=== PATIENT | male | born 1980 | race African-American/Black ===

== ENCOUNTER 2018-05-04 15:51 | Inpatient (IN) | payer OTHER ==
--- NOTE | 2018-05-04 16:00 | PDOC ---
Rapid Medical Evaluation Chief Complaint: Irregular Heart Beat Time Seen by Provider: 05/04/18 15:54 Medical Evaluation: Allergies Allergy/AdvReac Type Severity Reaction Status Date / Time No Known Allergies Allergy Verified 12/01/11 18:14 05/04/18 15:55 I have performed a brief in-person evaluation of this patient. The patient presents with a chief complaint of: palpitations Pertinent physical exam findings: Variable regular HR. No m/r/g. Lungs CTAB. I have ordered the following: urine, labs, CXR, ekg The patient will proceed to the ED for further evaluation. Discharge Disposition - Diagnosis Tachycardia - Referrals - Patient Instructions - Post Discharge Activity
[2018-05-04 16:27] LABS: EOS % 4.1 % (0-4.5); HEMATOCRIT 45.2 % (35.4-49); HEMOGLOBIN 14.9 GM/dL (11.7-16.9); LYMPH % 54.2 % (8-40); MEAN CELL VOLUME 93.9 fl (80-96); MEAN PLT VOLUME 9.9 fl (7.5-11.1); MONO % 9.5 % (3.8-10.2); NEUT % 31.2 % (42.8-82.8); PLATELET COUNT 170 K/MM3 (134-434); RBC 4.81 M/mm3 (4.00-5.60); RDW 12.9 % (11.9-15.9); WHITE BLOOD COUNT 4.3 K/mm3 (4.0-10.0)
--- NOTE | 2018-05-04 16:43 | PDOC ---
History of Present Illness - History of Present Illness Initial Comments: Anam Duenas is a 37yo otherwise healthy man who presents from his PMD's (Dr Reagan) office for new onset irregular heartbeat. He reports that he has noticed his heart was racing over the past few nights. He states that he can feel that his heart is not beating normally, but he is otherwise asymptomatic. He has a FitBit and notes that his HR has gone up to the 140's while sitting. Per the fitbit, his average heart rate is in the mid 60's (data reviewed in the ED). Mr Duenas denies any symptoms associated with the racing heart. He denies lightheadedness, vertigo, SOB/CLAY, chest pain, diaphoresis, nausea/vomiting or any other associated symptoms. He states that he does drinks one cup of coffee per day and does not drink caffeine otherwise. He takes no medications nor supplements at home. He has no personal cardiac history, though his father had several episodes of a-fib a few years ago and required cardioversion. <Irma Mckeon - Last Filed: 05/04/18 19:32> <Alba Pike - Last Filed: 05/10/18 05:36> - General Chief Complaint: Irregular Heart Beat Stated Complaint: PCP SENT/TACHYCARDIA Time Seen by Provider: 05/04/18 15:54 Past History - Suicide/Smoking/Psychosocial Hx Smoking Status: No Smoking History: Never smoked Have you smoked in the past 12 months: No Number of Cigarettes Smoked Daily: 0 Information on smoking cessation initiated: No Hx Alcohol Use: No Drug/Substance Use Hx: No <Irma Mckeon - Last Filed: 05/04/18 19:32> <Alba Pike - Last Filed: 05/10/18 05:36> - Past Medical History Allergies/Adverse Reactions: Allergies Allergy/AdvReac Type Severity Reaction Status Date / Time No Known Allergies Allergy Verified 12/01/11 18:14 Home Medications: Ambulatory Orders Apixaban [Eliquis -] 5 mg PO BID #60 tablet 05/06/18 Metoprolol Succinate 25 mg PO DAILY #30 tab.er.24h 05/06/18 Review of Systems - Review of Systems Comments:: General: No fevers, no chills, no weight or appetite change, no malaise HEENT: No changes in vision, no changes in hearing, no congestion, no sore throat CV: No chest pain, no LE edema. See HPI Pulm: No SOB, no cough, no wheezing GI: No nausea or vomiting, no change in bowel habits, no melena : No frequency, no urgency, no dysuria Musc: No back pain, no joint swelling, no recent injury Skin: No rash, no lesions, no erythema Endo: No excessive thirst, no heat/cold intolerance Heme: No unusual bruising or bleeding, no swollen glands Neuro: No syncope, no numbness/tingling, no focal weakness Vasc: No claudication Psych: No recent change in mood, no SI or HI <LindaIrma - Last Filed: 05/04/18 19:32> *Physical Exam - Vital Signs Last Vital Signs Temp Pulse Resp BP Pulse Ox 98.6 F 106 H 18 125/74 100 05/04/18 15:54 05/04/18 15:54 05/04/18 15:54 05/04/18 15:54 05/04/18 15:54 - Physical Exam Comments: General: Comfortable, no acute distress HEENT: PERRL, EOMI, MMM, voice normal, normal neck ROM, no LAD Cards: Irregular rhythm Pulm: Comfortable on room air, clear to auscultation bilaterally Abd: Soft, nontender, nondistended Ext: Atraumatic. No LE edema. ROM intact. Strength 5/5 and equal bilaterally Vasc: Extremities WWP. Palpable radial and pedal pulses bilaterally Skin: Normal color, no rashes or lesions Neuro: A&Ox3, CN grossly intact, normal speech, motor/sensory grossly intact and symmetric Psych: Mood appropriate to situation <LindaIrma - Last Filed: 05/04/18 19:32> - Vital Signs Last Vital Signs Temp Pulse Resp BP Pulse Ox 97.4 F L 63 20 96/55 L 99 05/06/18 14:30 05/06/18 14:30 05/06/18 14:30 05/06/18 14:30 05/06/18 13:53 <Alba Pike - Last Filed: 05/10/18 05:36> ED Treatment Course - LABORATORY CBC & Chemistry Diagram: 05/04/18 16:00 05/04/18 15:29 - ADDITIONAL ORDERS Additional order review: 05/04/18 16:00 RBC 4.81 MCV 93.9 MCHC 33.0 RDW 12.9 MPV 9.9 Neutrophils % 31.2 L Lymphocytes % 54.2 H Monocytes % 9.5 Eosinophils % 4.1 Basophils % 1.0 <Irma Mckeon - Last Filed: 05/04/18 19:32> - LABORATORY CBC & Chemistry Diagram: 05/05/18 11:15 05/05/18 05:30 - ADDITIONAL ORDERS Additional order review: 05/04/18 16:00 RBC 4.81 MCV 93.9 MCHC 33.0 RDW 12.9 MPV 9.9 Neutrophils % 31.2 L Lymphocytes % 54.2 H Monocytes % 9.5 Eosinophils % 4.1 Basophils % 1.0 - Medications Given in the ED: ED Medications Discontinued Medications Generic Name Dose Route Start Last Admin Trade Name Freq PRN Reason Stop Dose Admin Acetaminophen 650 mg 05/05/18 21:24 05/05/18 21:40 Tylenol - PO 05/05/18 21:25 650 mg ONCE ONE Administration Apixaban 5 mg 05/06/18 09:30 05/06/18 09:49 Eliquis - PO 05/06/18 09:31 5 mg ONCE ONE Administration Aspirin 325 mg 05/04/18 19:15 05/06/18 09:49 Ecotrin - PO 325 mg DAILY DARWIN Administration Heparin Sodium (Porcine) 5,000 unit 05/04/18 22:00 05/06/18 09:48 Heparin - SQ 5,000 unit BID DARWIN Administration Metoprolol Succinate 25 mg 05/04/18 19:15 05/05/18 09:38 Toprol Xl - PO 25 mg DAILY DARWIN Administration Metoprolol Succinate 25 mg 05/05/18 16:50 05/05/18 16:30 Toprol Xl - PO 05/05/18 16:51 25 mg ONCE ONE Administration Metoprolol Succinate 50 mg 05/05/18 22:00 05/06/18 09:49 Toprol Xl - PO 50 mg BID DARWIN Administration Metoprolol Tartrate 5 mg 05/05/18 14:47 05/05/18 14:52 Lopressor Injection - IVPUSH 05/05/18 14:48 5 mg ONCE ONE Administration Metoprolol Tartrate 5 mg 05/05/18 17:00 05/05/18 16:10 Lopressor Injection - IVPUSH 05/05/18 18:01 5 mg Q1H DARWIN Administration <Alba Pike - Last Filed: 05/10/18 05:36> Medical Decision Making - Medical Decision Making 05/04/18 16:45 Anam Duenas is an otherwise healthy 37yo man who presents with asymptomatic new onset a-flutter. - Could be due to thyroid abnormalities, MIRA, or underlying heart disease. Could also be due to undisclosed caffeine or substance use - PMD Dr Reagan requests consult with Dr Hall in cardiology, page sent - CBC, CMP, troponin, mag, PT/INR, T4, TSH, CXR ordered in triage - pending - EKG reviewed. a-flutter, irregular rhythm 05/04/18 16:48 - Spoke to Dr Ogden (cardiology). Recommending admission to telemetry, will continue to follow. No need for anticoagulation at this time as Mr Duenas is otherwise young and healthy - Spoke to Dr Reagan. Agrees with decision to admit to tele - Discussed admission with Mr Duenas. He agrees and understands with this plan. - CBC returned, unremarkable. Other labs and results pending. 05/04/18 19:32 - Chemistry unremarkable - Trop negative Patient endorsed to Dr Shaikh for any additional medical care prior to transfer upstairs. Discussed with Dr Pike. Irma Mckeon PGY1 <Irma Mckeon - Last Filed: 05/04/18 19:32> *DC/Admit/Observation/Transfer <Irma Mckeon - Last Filed: 05/04/18 19:32> - Discharge Dispostion Decision to Admit order: Yes <Alba Pike - Last Filed: 05/10/18 05:36> Diagnosis at time of Disposition: Tachycardia, Atrial flutter - Discharge Dispostion Condition at time of disposition: Good
[2018-05-04 16:45] LABS: INR 0.97 (0.83-1.09); PROTHROMBIN TIME (PATIENT) 11.5 SEC (9.7-13.0)
[2018-05-04 17:26] LABS: URINE APPEARANCE CLEAR; URINE BILIRUBIN NEGATIVE (<2.0 mg/dL); URINE COLOR YELLOW; URINE GLUCOSE (UA) NEGATIVE (NEGATIVE); URINE KETONE NEGATIVE (NEGATIVE); URINE LEUK ESTERASE NEGATIVE (NEGATIVE); URINE NITRITE NEGATIVE (NEGATIVE); URINE PROTEIN NEGATIVE (NEGATIVE); URINE UROBILINOGEN NEGATIVE mg/dL (0.2-1.0)
--- NOTE | 2018-05-04 17:36 | PDOC ---
Attending Attestation - Medical Decision Making 05/04/18 16:[address] Hall, waiting for a call back from on-call chair installer Dr. Ogden. 05/04/18 16:[address] Ogden. 05/04/18 16:[address] Reagan's office. 05/04/18 17:[address] Reagan 05/04/18 17:39 Documentation prepared by Syeda Burns, acting as medical/surgery registered nurse for Alba Pike MD. <Syeda Burns - Last Filed: 05/04/18 17:36> - Resident Resident Name: Irma Mckeon - ED Attending Attestation I have performed the following: I have examined & evaluated the patient, The case was reviewed & discussed with the resident, I agree w/resident's findings & plan - HPI HPI: 05/04/18 17:34 Anam Duenas is a 37 year old healthy male with no significant past medical history presents to the emergency department from PCPs office with palpitations. The patient presents with couple of days of intermittent palpitations at rest. The patient states he has noticed a heart rate elevation on his fitbit watch, highest he noticed was to the 140s. Denies fever, chills, cough, headache, chest pain, shortness of breath, chest pain, abdominal pain, numbness, tingling, loss of sensation. no recent URI or infection. Allergies: NKA Social history: No past or present use of tobacco, alcohol or recreational drug use. Surgical history: None reported. PCP: Dr. Reagan - Physicial Exam PE: 05/04/18 17:45 NAD, well appearing, MMM, nl conjunctiva, anicteric; neck supple. lungs clear, irregularly irregular, no murmurs, abdomen soft nontender. SHAVER x4, no focal neuro deficits. No peripheral edema. normal color for ethnicity, WWP. - Medical Decision Making 37 YOM healthy p/w intermittent palpitations. found to be in new onset Aflutter in variable block. DDx. ACS, electrolyte/metabolic derangements, arrhythmia. Vital signs reviewed, +mild tachycardia Prior notes reviewed, including admissions, discharges and consultations. laboratory results and imaging reviewed, basic labs and lytes wnl, notable for_ . CXR_ Cardiac panel negative troponin, CK_ EKG Atrial flutter in variable block. ED course: no acute events, remained stable and well appearing. Cardiology cs with Justin Sky database administration associate, will come to see, telemetry admit , hold AC for now as low risk with no medical problems. Dispo: Admit for new onset Aflutter, asymptomatic currently. Discussed results and management plan with pt and family member at bedside, agree with impression and plan 05/04/18 17:49 <Alba Pike - Last Filed: 05/04/18 17:49> Heart Score/ECG Review - ECG Impressions Normal ECG: No Non-specific ST Elevation: No Ischemic Changes: No Tachycardia: Atrial Flutter Comment:: 05/04/18 17:47 EKG Atrial flutter in variable block. <Alba Pike - Last Filed: 05/04/18 17:49>
[2018-05-04 19:03] LABS: ALBUMIN 4.1 g/dl (3.4-5.0); ALK PHOS 72 U/L (45-117); ANION GAP 5 MMOL/L (8-16); BILIRUBIN,TOTAL 0.4 mg/dL (0.2-1); BLOOD UREA NITROGEN 16 mg/dL (7-18); CALCIUM 8.9 mg/dL (8.5-10.1); CHLORIDE 109 mmol/L (98-107); CO2 27 mmol/L (21-32); GLUCOSE,RANDOM 101 mg/dL (74-106); MAGNESIUM 2.1 mg/dL (1.8-2.4); PHOSPHOROUS 3.8 mg/dL (2.5-4.9); POTASSIUM 4.2 mmol/L (3.5-5.1); SGOT/AST 22 U/L (15-37); SGPT/ALT 44 U/L (13-61); SODIUM 141 mmol/L (136-145); TOT PROT 7.7 g/dl (6.4-8.2)
[2018-05-04] MEDS: metoPROLOL SUCCINATE 25 MG TAB.SR.24H (FP) PO SCH (20:50)
[2018-05-04] MEDS ORDERED: ASPIRIN 325 MG ENTERIC COATED TABLET (FP) ONE (20:53)
[2018-05-04] MEDS: ASPIRIN 325 MG ENTERIC COATED TABLET (FP) PO SCH (20:55)
[2018-05-04] MEDS ORDERED: HEPARIN NA (PORCINE) 5,000 UNITS/ML 1ML VIAL ONE (23:02)
[2018-05-04] MEDS: HEPARIN NA (PORCINE) 5,000 UNITS/ML 1ML VIAL SQ SCH (23:08)
[2018-05-04 23:24] LABS: COCAINE, UR NEGATIVE ng/ml (CUTOFF=300); METHADONE, UR NEGATIVE ng/ml (CUTOFF=300); OPIATES, URI NEGATIVE ng/ml (CUTOFF=300); PHENCYCLIDINE,URINE NEGATIVE ng/ml (CUTOFF=25); URINE AMPHETAMINES NEGATIVE ng/ml (CUTOFF=500); URINE BARBITURATES NEGATIVE ng/ml (CUTOFF=200); URINE BENZODIAZEPINES NEGATIVE ng/ml (CUTOFF=200)
[2018-05-05 01:23] VITALS: BMI 31.9
[2018-05-05 06:12] LABS: BASO % 1.1 % (0-2.0); EOS % 3.9 % (0-4.5); HEMATOCRIT 43.3 % (35.4-49); HEMOGLOBIN 14.3 GM/dL (11.7-16.9); LYMPH % 57.9 % (8-40); MCH 30.8 pg (25.7-33.7); MCHC 32.9 g/dl (32.0-35.9); MEAN CELL VOLUME 93.4 fl (80-96); MEAN PLT VOLUME 9.5 fl (7.5-11.1); MONO % 10.9 % (3.8-10.2); NEUT % 26.2 % (42.8-82.8); PLATELET COUNT 131 K/MM3 (134-434); RBC 4.64 M/mm3 (4.00-5.60); RDW 13.4 % (11.9-15.9); WHITE BLOOD COUNT 3.3 K/mm3 (4.0-10.0)
[2018-05-05 07:10] LABS: ALBUMIN 3.6 g/dl (3.4-5.0); ALK PHOS 64 U/L (45-117); ANION GAP 6 MMOL/L (8-16); BILIRUBIN,TOTAL 0.6 mg/dL (0.2-1); BLOOD UREA NITROGEN 16 mg/dL (7-18); CALCIUM 8.7 mg/dL (8.5-10.1); CHLORIDE 107 mmol/L (98-107); CHOLESTEROL 160 mg/dL (50-200); CO2 30 mmol/L (21-32); CREATININE 1.1 mg/dL (0.55-1.3); GLUCOSE,RANDOM 116 mg/dL (74-106); HDL CHOLESTEROL 41 mg/dL (40-60); POTASSIUM 4.1 mmol/L (3.5-5.1); SGOT/AST 22 U/L (15-37); SGPT/ALT 42 U/L (13-61); SODIUM 142 mmol/L (136-145); TOT PROT 6.9 g/dl (6.4-8.2); TRIGLYCERIDES 74 mg/dL (0-150)
--- NOTE | 2018-05-05 08:22 | HP ---
Admitting History and Physical - Admission History of Present Illness: 37yo otherwise healthy man who presents from his PMD's (Dr Reagan) office for new onset irregular heartbeat. He reports that he has noticed his heart was racing over the past few nights. He states that he can feel that his heart is not beating normally, but he is otherwise asymptomatic. He has a FitBit and notes that his HR has gone up to the 140's while sitting. Per the fitbit, his average heart rate is in the mid 60's (data reviewed in the ED). Mr Duenas denies any symptoms associated with the racing heart. He denies lightheadedness, vertigo, SOB/CLAY, chest pain, diaphoresis, nausea/vomiting or any other associated symptoms. He states that he does drinks one cup of coffee per day and does not drink caffeine otherwise. He takes no medications nor supplements at home. He has no personal cardiac history, though his father had several episodes of a-fib a few years ago and required cardioversion. - Past Medical History Cardiovascular: Yes: Hyperlipdemia. No: AFIB, CAD, CHF Pulmonary: No: Asthma, COPD Gastrointestinal: No: GI Bleed - Smoking History Smoking history: Never smoked Have you smoked in the past 12 months: No Aproximately how many cigarettes per day: 0 - Alcohol/Substance Use Hx Alcohol Use: Yes Home Medications - Allergies Allergies/Adverse Reactions: Allergies Allergy/AdvReac Type Severity Reaction Status Date / Time No Known Allergies Allergy Verified 12/01/11 18:14 - Home Medications Home Medications: Ambulatory Orders NK [No Known Home Medication] 05/04/18 Review of Systems - Review of Systems Cardiovascular: reports: Palpitations, Shortness of Breath Respiratory: reports: SOB on Exertion Gastrointestinal: reports: No Symptoms Genitourinary: reports: No Symptoms Physical Examination Vital Signs: Vital Signs Temperature 98.6 F 05/05/18 05:11 Pulse Rate 76 05/05/18 05:11 Respiratory Rate 20 05/05/18 05:11 Blood Pressure 111/76 05/05/18 05:11 O2 Sat by Pulse Oximetry (%) 97 05/05/18 01:13 Cardiovascular: Yes: S1, S2 Respiratory: Yes: Regular, CTA Bilaterally Gastrointestinal: Yes: Normal Bowel Sounds, Soft. No: Tenderness Neurological: Yes: Alert, Oriented, Cran Nerves II-XII Intact. No: Facial Droop Labs: CBC, BMP 05/05/18 05:30 05/05/18 05:30 Imaging - Results Cat Scan: Report Reviewed (cta no pe) Problem List - Problems (1) Atrial flutter Assessment/Plan: -Monitor on tele -echo -cta neg -tsh nl -metoprolol -asa--Cardio Code(s): I48.92 - UNSPECIFIED ATRIAL FLUTTER (2) RBBB Assessment/Plan: -Echo -Cardio Code(s): I45.10 - UNSPECIFIED RIGHT BUNDLE-BRANCH BLOCK
[2018-05-05] MEDS: ASPIRIN 325 MG ENTERIC COATED TABLET (FP) PO SCH (09:38)
[2018-05-05] MEDS: metoPROLOL SUCCINATE 25 MG TAB.SR.24H (FP) PO SCH ×2 (09:38→21:40)
[2018-05-05] MEDS: HEPARIN NA (PORCINE) 5,000 UNITS/ML 1ML VIAL SQ SCH ×2 (09:39→21:40)
[2018-05-05 11:31] LABS: BASO % 0.8 % (0-2.0); EOS % 4.3 % (0-4.5); HEMATOCRIT 43.9 % (35.4-49); HEMOGLOBIN 14.7 GM/dL (11.7-16.9); LYMPH % 46.7 % (8-40); MCH 31.4 pg (25.7-33.7); MCHC 33.5 g/dl (32.0-35.9); MEAN CELL VOLUME 93.5 fl (80-96); MEAN PLT VOLUME 9.8 fl (7.5-11.1); NEUT % 39.2 % (42.8-82.8); PLATELET COUNT 150 K/MM3 (134-434); RBC 4.69 M/mm3 (4.00-5.60); RDW 13.3 % (11.9-15.9); WHITE BLOOD COUNT 3.9 K/mm3 (4.0-10.0)
--- NOTE | 2018-05-05 12:07 | EKG ---
Test Reason : Blood Pressure : / mmHG Vent. Rate : 078 BPM Atrial Rate : 312 BPM P-R Int : 000 ms QRS Dur : 134 ms QT Int : 374 ms P-R-T Axes : 231 -32 033 degrees QTc Int : 426 ms ATRIAL FLUTTER WITH 4:1 A-V CONDUCTION LEFT AXIS DEVIATION RIGHT BUNDLE BRANCH BLOCK ABNORMAL ECG WHEN COMPARED WITH ECG OF 04-MAY-2018 15:50, NO SIGNIFICANT CHANGE WAS FOUND Confirmed by TJ NASH, CHETAN ([id number]) on 05/05/2018 12:07:22 PM Referred By: MAYUR VIVEROS DR Confirmed By:CHETAN SPENCER MD
--- NOTE | 2018-05-05 12:17 | EKG ---
Test Reason : Blood Pressure : / mmHG Vent. Rate : 087 BPM Atrial Rate : 315 BPM P-R Int : 000 ms QRS Dur : 122 ms QT Int : 374 ms P-R-T Axes : -88 -14 049 degrees QTc Int : 450 ms ATRIAL FLUTTER WITH VARIABLE A-V BLOCK RIGHT BUNDLE BRANCH BLOCK ABNORMAL ECG NO PREVIOUS ECGS AVAILABLE Confirmed by CHETAN SPENCER MD ([id number]) on 05/05/2018 12:17:30 PM Referred By: Confirmed By:CHETAN SPENCER MD
--- NOTE | 2018-05-05 12:27 | ECHO ---
Name: KARTHIK CASTAÑEDA Exam:Adult Echocardiogram Study Date: 05/05/2018 07:27 AM Age: 37 yrs Reason For Study: A FLUTTER Height: 74 in Weight: 250 lb BSA: 2.4 m2 MMode/2D Measurements & Calculations IVSd: 1.1 cm Ao root diam: 3.6 cm LVIDd: 4.8 cm LA dimension: 3.7 cm LVIDs: 2.9 cm ACS: 2.3 cm LVPWd: 1.1 cm IVSs: 1.3 cm LVPWs: 1.6 cm EDV(Teich): 109.1 ml ESV(Teich): 30.9 ml Doppler Measurements & Calculations MV E max omar: 77.0 cm/sec Ao V2 max: 105.1 cm/sec MV A max omar: 39.7 cm/sec Ao max P.4 mmHg MV E/A: 1.9 Ao V2 mean: 77.1 cm/sec Ao mean P.6 mmHg Ao V2 VTI: 20.6 cm TR max omar: 169.2 cm/sec Med Peak E' Omar: 14.7 cm/sec TR max P.5 mmHg Med E/e': 5.2 Lat Peak E' Omar: 13.1 cm/sec Lat E/e': 5.9 Procedure A complete two-dimensional transthoracic echocardiogram was performed (2D, M-mode, Doppler and color flow Doppler). Left Ventricle The left ventricular size, thickness and function are normal. The left ventricular ejection fraction is normal. Ejection Fraction = 60-65%. The left ventricular wall motion is normal. Right Ventricle The right ventricle is normal in size and function. Atria Normal left and right atrial size and function. Mitral Valve There is no mitral regurgitation noted. Tricuspid Valve There is trace tricuspid regurgitation. There was insufficient TR detected to calculate RV systolic p ressure. Aortic Valve The aortic valve is trileaflet. No hemodynamically significant valvular aortic stenosis. No aortic regurgitation is present. Pulmonic Valve There is no pulmonic valvular regurgitation. Great Vessels The aortic root is normal size. Pericardium/Pleura There is no pericardial effusion. Interpretation Summary The left ventricular size, thickness and function are normal The right ventricle is normal in size and function. There is trace tricuspid regurgitation. MD Hernando Rashid 05/05/2018 12:26 PM
--- NOTE | 2018-05-05 13:57 | CON.CARD ---
Consult Consult Specialty:: Cardiology Referred by:: Dr. Reagan Reason for Consultation:: Aflutter with RVR - History of Present Illness Chief Complaint: palpitations History of Present Illness: 37 year old man with no sig pmh sent from PMDs office for palpitations, elevated HR and found to be in newly dx aflutter with RVR. Pt seen and examined today in nad. remains in aflutter with rvr currently. states that for the past 3 days he has felt fluttering in his chest and noticed his HR was elevated on his fit bit. denies any chest pain, sob, pnd, orthopnea, or LE edema. no ligtheadedness, dizziness, syncope, or near syncope. no fever chills cough. - History Source History Provided By: Patient, Family Member Limitations to Obtaining History: No Limitations - Past Medical History Cardio/Vascular: Yes: Hyperlipdemia. No: AFIB, CAD, CHF Pulmonary: No: Asthma, COPD Gastrointestinal: No: GI Bleed - Alcohol/Substance Use Hx Alcohol Use: Yes - Smoking History Smoking history: Never smoked Have you smoked in the past 12 months: No Aproximately how many cigarettes per day: 0 - Social History Usual Living Arrangement: With Spouse ADL: Independent History of Recent Travel: No Home Medications - Allergies Allergies/Adverse Reactions: Allergies Allergy/AdvReac Type Severity Reaction Status Date / Time No Known Allergies Allergy Verified 12/01/11 18:14 - Home Medications Home Medications: Ambulatory Orders NK [No Known Home Medication] 05/04/18 Family Disease History - Family Disease History Family History: Denies Review of Systems - Review of Systems Constitutional: denies: No Symptoms, Chills, Diaphoresis, Fever, Lethargy, Loss of Appetite, Malaise, Night Sweats, Unintentional Wgt. Loss, Weakness, Other Eyes: denies: No Symptoms, Blind Spots, Blurred Vision, Double Vision, Eye Pain , Floaters, Photophobia, Recent Change in Vision, Other HENT: denies: No Symptoms, Difficult Swallowing, Ear Discharge, Ear Pain, Epistaxis, Gingival Bleeding, Hearing Loss, Mouth Swelling, Nasal Congestion, Ocular Prosthesis, Throat Pain, Toothache, Ringing in Ears, Other Neck: denies: No Symptoms, Decreased ROM, Lumps, Pain on Movement, Stiffness, Swollen Glands, Tenderness, Other Cardiovascular: reports: Palpitations. denies: No Symptoms, Chest Pain, Edema, Shortness of Breath, Other Respiratory: denies: No Symptoms, Cough, Exercise Intolerance, Hemoptysis, Orthopnea, PND, Snoring, SOB, SOB on Exertion, Wheezing, Other Gastrointestinal: denies: No Symptoms, Abdominal Pain, Bloating, Constipation, Diarrhea, Dysphagia, Indigestion, Melena, Nausea, Rectal Bleeding, Vomiting, Vomiting Blood, Other Genitourinary: denies: No Symptoms, Burning, Discharge, Dysuria, Flank Pain, Frequency, Hematuria, Incontinence, Lesions, Menses, Pain, Testicular Mass, Testicular Pain, Testicular Swelling, Urgency, Vaginal Bleeding, Other Breasts: denies: No Symptoms Reported, See HPI, Breast Implants, Discharge from Nipple, Lumps, Pain, Skin Changes, Other Musculoskeletal: denies: No Symptoms, Back Pain, Crepitus, Decreased ROM, Extremity Pain, Joint Pain, Joint Swelling, Muscle Pain, Muscle Cramps, Muscle Weakness, Other Integumentary: denies: No Symptoms, Blister, Bruising, Change in Color, Eczema, Erythema, Incision, Lesions, Lump, Pallor, Pruritis, Rash, Wound, Other Neurological: denies: No Symptoms, Change in LOC, Change in Speech, Confusion, Dizziness, Headache, Incoordination, Numbness, Parasthesia, Pre-Existing Deficit , Seizure, Syncope, Tremors, Unsteady Gait, Weakness, Other Endocrine: denies: No Symptoms, Excessive Sweating, Flushing, Increased Hunger, Increased Thirst, Intolerance to Cold, Intolerance to Heat, Unexplained Weight Gain, Unexplained Weight Loss, Other Hematology/Lymphatic: denies: No Symptoms, Easily Bruised, Excessive Bleeding, Swollen Glands, Other Psychiatric: denies: No Symptoms, Altered Sleep Pattern, Anxiety, Depression, Hallucinations, Panic, Paranoia, Suicidal, Other Vital Signs: Vital Signs Temperature 98.4 F 05/05/18 09:00 Pulse Rate 78 05/05/18 09:00 Respiratory Rate 18 05/05/18 09:00 Blood Pressure 124/78 05/05/18 09:00 O2 Sat by Pulse Oximetry (%) 97 05/05/18 09:00 Constitutional: Yes: No Distress, Calm Eyes: Yes: Conjunctiva Clear, EOM Intact, PERRL HENT: Yes: Atraumatic, Normocephalic Neck: Yes: Supple, Trachea Midline Respiratory: Yes: Regular, CTA Bilaterally. No: Rales, Rhonchi, SOB, Wheezes Gastrointestinal: Yes: Normal Bowel Sounds, Soft. No: Distention, Tenderness Cardiovascular: Yes: Tachycardia, Pulse Irregular. No: Regular Rate and Rhythm , Bradycardia, Gallop, Rub, Varicosities JVD: No Carotid Bruit: No PMI: Non-Displaced Heart Sounds: Yes: S1, S2. No: Split S2, S3, S4, Clicks, Gallop, Rub, Bruit Murmur: No: Systolic Murmur, Diastolic Murmur Musculoskeletal: Yes: WNL Extremities: Yes: WNL Edema: No Peripheral Pulses WNL: Yes Peripheral Pulses: 2+ Left Doralis Pedis, 2+ Right Dorsalis Pedis Neurological: Yes: Alert, Oriented Psychiatric: Yes: Alert, Oriented - Other Data Labs, Other Data: CBC, BMP 05/05/18 11:15 05/05/18 05:30 INR, PTT INR 0.97 (0.83-1.09) 05/04/18 15:29 Troponin, BNP 05/04/18 05/05/18 15:29 05:30 Troponin I < 0.02 < 0.02 Troponin, BNP 05/04/18 05/05/18 15:29 05:30 Troponin I < 0.02 < 0.02 ekg-aflutter variable block 78bpm Echo: Report Reviewed Imaging - Results Chest X-ray: Report Reviewed, Image Reviewed EKG: Report Reviewed, Image Reviewed Other: Report Reviewed, Image Reviewed (tele-aflutter with variable block currently RVR up to 140bpm) Assessment/Plan 37 year old man with no sig pmh sent from PMDs office for palpitations, elevated HR and found to be in newly dx aflutter with RVR. Pt seen and examined today in nad. remains in aflutter with rvr currently. states that for the past 3 days he has felt fluttering in his chest and noticed his HR was elevated on his fit bit. denies any chest pain, sob, pnd, orthopnea, or LE edema. no ligtheadedness, dizziness, syncope, or near syncope. no fever chills cough. Aflutter with variable block with RVR up to 140-150bpm -gave 3 doses IV metoprolol this afternoon with improvement in HR -increase Toprol XL to 50mg bid -echo 10/25/18 showed normal LV systolic function, trace TR no other sig abnl -CTA chest showed no PE -cont tele -cont ASA for now, if no DCCV will plan to cont ASA outpatient -discussed at length with pt and family options -will attempt HR control overnight and if pt spontaneously converts to NSR he can be discharged with outpatient fup -if stays in aflutter and HR is controlled options are CARLOS/DCCV tomorrow or discharge with medical therapy and outpatient fup -if HR remains uncontrolled until tomorrow would plan for CARLOS/DCCV inpatient -pt will decide in regards to CARLOS/DCCV -procedure scheduled for 12pm tomorrow -if going for CARLOS/DCCV would start eliquis 5mg 2 hours prior to procedure and plan to cont for short duration post cardioversion due to myocardial stunning with DCCV -keep npo after midnight for possible procedure tomorrow
[2018-05-05] MEDS ORDERED: METOPROLOL TARTRATE 5 MG/5 ML VIAL IVPUSH ONE (14:47)
[2018-05-05] MEDS ORDERED: METOPROLOL TARTRATE 5 MG/5 ML VIAL ONE ×2 (14:49→16:09)
[2018-05-05] MEDS: METOPROLOL TARTRATE 5 MG/5 ML VIAL IVPUSH SCH ×2 (15:10→16:10)
[2018-05-05] MEDS ORDERED: metoPROLOL SUCCINATE 25 MG TAB.SR.24H (FP) PO ONE (16:50)
[2018-05-05] MEDS ORDERED: ACETAMINOPHEN 325 MG TABLET (FP) PO ONE (21:24)
--- NOTE | 2018-05-06 08:17 | PN ---
Progress Note, Physician - Current Medication List Current Medications: Active Medications Apixaban (Eliquis -) 5 mg PO ONCE ONE Stop: 05/05/18 16:53 Aspirin (Ecotrin -) 325 mg PO DAILY [facility] Last Admin: 05/05/18 09:38 Dose: 325 mg Heparin Sodium (Porcine) (Heparin -) 5,000 unit SQ BID [facility] Last Admin: 05/05/18 21:40 Dose: 5,000 unit Metoprolol Succinate (Toprol Xl -) 50 mg PO BID [facility] Last Admin: 05/05/18 21:40 Dose: 50 mg - Objective Vital Signs: Vital Signs Temperature 97.9 F 05/06/18 01:00 Pulse Rate 80 05/06/18 05:00 Respiratory Rate 15 05/06/18 05:00 Blood Pressure 111/55 L 05/06/18 05:00 O2 Sat by Pulse Oximetry (%) 96 05/05/18 21:00 Cardiovascular: Yes: Pulse Irregular, S1, S2 Respiratory: Yes: Regular, CTA Bilaterally Gastrointestinal: Yes: Normal Bowel Sounds, Soft Labs: CBC, BMP 05/05/18 11:15 05/05/18 05:30 INR, PTT INR 0.97 (0.83-1.09) 05/04/18 15:29 Problem List - Problems (1) Atrial flutter Assessment/Plan: -Monitor on tele---FLUTTER NOTED -echo NL LV -cta neg -tsh nl -metoprolol -asa--Cardio---MAY NEED CARDIOVERSION--CARDIO FOLLOW UP Code(s): I48.92 - UNSPECIFIED ATRIAL FLUTTER (2) RBBB Assessment/Plan: -Echo -Cardio Code(s): I45.10 - UNSPECIFIED RIGHT BUNDLE-BRANCH BLOCK (3) Leukopenia Assessment/Plan: -HEM CONSULT Code(s): D72.819 - DECREASED WHITE BLOOD CELL COUNT, UNSPECIFIED
[2018-05-06] MEDS ORDERED: APIXABAN 5 MG TABLET PO ONE (09:30)
[2018-05-06] MEDS: HEPARIN NA (PORCINE) 5,000 UNITS/ML 1ML VIAL SQ SCH (09:48)
[2018-05-06] MEDS: metoPROLOL SUCCINATE 25 MG TAB.SR.24H (FP) PO SCH (09:49)
[2018-05-06] MEDS: ASPIRIN 325 MG ENTERIC COATED TABLET (FP) PO SCH (09:49)
--- NOTE | 2018-05-06 11:18 | CONSULT ---
Consult Consult Specialty:: Heme/Onc Referred by:: Dr. Reagan Reason for Consultation:: leukopenia - History of Present Illness Chief Complaint: irregular heart beat History of Present Illness: 37M denies medical history of neing on home meds, works at [employer] in the kitchen, presents due to palpitations. He noted his HR was in the 140s on his fitbit. He was sent in by his PMD for A fib with RVR. Patient seen by cardiology and going for cardioversion. Patient is on aspirin and got one dose of eliquis this morning. We were consulted for leukopenia. Upon presentation WBC was 4.3 which dropped down to 3.3 and now is 3.9. platelets were initially 170 on admission then 131 and now 150. Patient endorses he has symptoms of a cold about 2 weeks ago. He currently denies being on home medications other than the medications he got here. He denies nausea vomting fever chills chest pain or shortness of breath. Denies urinary or GI symptoms. Denies easy bruising or bleeding. Denies family history of any blood or blood cancer disorders or diseases. His mother and sister had breast cancer and his father had prostate cancer. - History Source History Provided By: Patient, Medical Record - Past Medical History Cardio/Vascular: Yes: Hyperlipdemia. No: AFIB, CAD, CHF Pulmonary: No: Asthma, COPD Gastrointestinal: No: GI Bleed - Alcohol/Substance Use Hx Alcohol Use: Yes - Smoking History Smoking history: Never smoked Have you smoked in the past 12 months: No Aproximately how many cigarettes per day: 0 - Social History Usual Living Arrangement: With Spouse ADL: Independent History of Recent Travel: No Home Medications - Allergies Allergies/Adverse Reactions: Allergies Allergy/AdvReac Type Severity Reaction Status Date / Time No Known Allergies Allergy Verified 12/01/11 18:14 - Home Medications Home Medications: Ambulatory Orders NK [No Known Home Medication] 05/04/18 Family Disease History - Family Disease History Family Disease History: CA: Father (prostate), Mother (breast), Sister (Breast) Review of Systems - Review of Systems Constitutional: reports: No Symptoms Eyes: reports: No Symptoms HENT: reports: No Symptoms Neck: reports: No Symptoms Cardiovascular: reports: Palpitations Respiratory: reports: No Symptoms Gastrointestinal: reports: No Symptoms Genitourinary: reports: No Symptoms Breasts: reports: No Symptoms Reported Musculoskeletal: reports: No Symptoms Integumentary: reports: No Symptoms Neurological: reports: No Symptoms Endocrine: reports: No Symptoms Hematology/Lymphatic: reports: No Symptoms Physical Exam Vital Signs: Vital Signs Temperature 98.3 F 05/06/18 09:00 Pulse Rate 79 05/06/18 09:00 Respiratory Rate 15 05/06/18 09:00 Blood Pressure 130/86 05/06/18 09:00 O2 Sat by Pulse Oximetry (%) 98 05/06/18 09:00 Constitutional: Yes: Well Nourished, No Distress, Calm Eyes: Yes: Conjunctiva Clear, EOM Intact HENT: Yes: WNL, Atraumatic, Normocephalic. No: Thrush Neck: Yes: WNL, Supple, Trachea Midline. No: Lymphadenopathy Cardiovascular: Yes: Pulse Irregular Respiratory: Yes: Regular, Other (faint right base crackles likely from atelectasis. left side Clear) Gastrointestinal: Yes: Normal Bowel Sounds, Soft. No: Tenderness Renal/: Yes: Other (testes lying normally in the testicular sack. no masses or tenderness appreciated. no inguinal adenopathy). No: CVA Tenderness - Left, CVA Tenderness - Right, Scrotal Edema Breast(s): Yes: WNL, Other (no masses no axillary lypmadenpathy no supraclavicular adenopathy). No: Breast Implants, Dimpling, Discharge from Nipple, Gynecomastia, Mass Edema: No Integumentary: Yes: WNL Neurological: Yes: Alert, Oriented Labs: CBC, BMP 05/05/18 11:15 05/05/18 05:30 Imaging - Results Chest X-ray: Report Reviewed, Image Reviewed Cat Scan: Report Reviewed, Image Reviewed EKG: Report Reviewed, Image Reviewed Assessment/Plan 37M with no significant PMH presents to the hospital with palpitations found to have A fib with RVR. Patient going for DCCV today at noon Problem List: A fib with RVR leukopenia Plan: WBC count seems to be reviewing now at 3.9 ANC 1.5 could likely be secondary an acute viral syndrome - patient does report a cold about 2 weeks ago Continue to trend CBC for cardioversion today. will follow
[2018-05-06] MEDS ORDERED: LIDOCAINE VISCOUS 2% ORAL/TOP 20 ML UNIT-DOSE CUP ONE (12:07)
--- NOTE | 2018-05-06 13:23 | PN ---
Progress Note (short form) - Note Progress Note: CARLOS/DCCV performed today. Full CARLOS report to follow. CARLOS showed no left atrial or left atrial appendage thrombus. No evidence of PFO. DCCV performed with 200J x 1, with successful gnosticist of NSR. Pt tolerated procedure well. There were no complications. Keep NPO for 2 hours post procedure until 3pm. Cont Eliquis 5mg bid with plan for short duration of therapy. Reduce Toprol to 25mg daily. Pt can likely be discharged home this afternoon with close outpatient fup.
[2018-05-06 14:45] VITALS: BP 96/55; PULSE 63; TEMP 97.4
--- NOTE | 2018-05-06 16:55 | ECHO ---
Name: MADDY, KARTHIK Exam:Transesophageal Echocardiogram Study Date: 05/06/2018 12:35 PM Age: 37 yrs Height: 74 in Weight: 249 lb BSA: 2.4 m2 Procedure: A 2D transesophageal echocardiogram with Doppler and color flow Doppler was performed. Informed conse nt for Transesophageal Echocardiogram, and use of a contrast agent as needed, was obtained prior to the proc edure. The patient was brought to the endoscopy suite in a fasting state. An intravenous line was placed. A topical anesthetic agent was used for oropharangeal anesthesia. A bite block was inserted. IV concious sedati on was administered using propafol. The transesophageal probe was passed without difficulty. The usual views were obtained; basal, mid-esophageal, transgastric and aortic views. The patient's vital signs, including blood pressure, heart rate, pulse oximetry and cardiac rhythm were monitored throughout the procedure and r emained stable. The patient tolerated the procedure well without evidence of orophangeal or esophageal trauma . Contrast injection with agitated saline was performed. There were no complications. The patient was i n atrial flutter during the exam. Left Ventricle The left ventricle is grossly normal size. Left ventricular systolic function is grossly normal. Right Ventricle The right ventricle is grossly normal size. The right ventricular systolic function is grossly normal . Atria No left atrial or left atrial appendage thrombus. The left atrial appendage velocity is normal. Color flow doppler and agitated saline injection demonstrates no evidence of a patent foramen ovale. Mitral Valve The mitral valve is normal. There is trace mitral regurgitation. Tricuspid Valve The tricuspid valve is normal. There is trace tricuspid regurgitation. Aortic Valve The aortic valve is trileaflet. The aortic valve opens well. No aortic regurgitation is present. Pulmonic Valve The pulmonic valve leaflets are thin and pliable; valve motion is normal. There is no pulmonic valvul ar regurgitation. Great Vessels Normal ascending aorta, aortic arch, and proximal descending aorta. Interpretation Summary Left ventricular systolic function is grossly normal. The right ventricular systolic function is grossly normal. No left atrial or left atrial appendage thrombus. The left atrial appendage velocity is normal. Color flow doppler and agitated saline injection demonstrates no evidence of a patent foramen ovale. There is trace mitral regurgitation. There is trace tricuspid regurgitation. The aortic valve is trileaflet. Normal ascending aorta, aortic arch, and proximal descending aorta. MD Servando Ogden 05/06/2018 04:54 PM
[2018-05-06] MEDS ORDERED: APIXABAN 5 MG TABLET PO SCH (22:00)
[2018-05-07] MEDS ORDERED: metoPROLOL SUCCINATE 25 MG TAB.SR.24H (FP) PO SCH (10:00)
--- NOTE | 2018-05-07 15:03 | EKG ---
Test Reason : Blood Pressure : / mmHG Vent. Rate : 085 BPM Atrial Rate : 085 BPM P-R Int : 174 ms QRS Dur : 102 ms QT Int : 362 ms P-R-T Axes : 060 -05 039 degrees QTc Int : 430 ms NORMAL SINUS RHYTHM NORMAL ECG WHEN COMPARED WITH ECG OF 05-MAY-2018 09:05, SINUS RHYTHM HAS REPLACED ATRIAL FLUTTER RIGHT BUNDLE BRANCH BLOCK IS NO LONGER PRESENT Confirmed by MD Louise, Sam ([id number]) on 05/07/2018 3:03:01 PM Referred By: MILTON MONTGOMERY Confirmed By:Sam Gil MD
== END 2018-05-06 19:08 | disposition home or self-care (01) | DRG 310 ==
LOC: JER 15:51 → JERBED 17:32 → J4W 05-05 01:04
PROVIDERS: ADMIT Family Medicine; ATTEND Family Medicine
PROC: B246ZZ4 Ultrasonography of Right and Left Heart, Transesophageal (ICD-10-PCS; principal; 2018-05-06 12:00)
DX: I48.92 Unspecified atrial flutter (principal); I45.10 Unspecified right bundle-branch block; I48.91 Unspecified atrial fibrillation; D72.819 Decreased white blood cell count, unspecified; R00.0 Tachycardia, unspecified
CPT/HCPCS: 36415; 71046-TC-FY; 71275-TC; 80053; 80061; 80307; 81003; 82550; 82553; 83036; 83721; 83735; 84100; 84436; 84443; 84484; 85025; 85610; 93005; 93010; 93306-TC; 93312; 93325; 99285-25; J1644

== ENCOUNTER 2024-06-09 15:23 | Emergency (ER) | payer BC, OTHER ==
[2024-06-09 15:34] VITALS: BP 126/81; PULSE 83; RESP 18; TEMP 98.7; BMI 31.6
[2024-06-09 16:51] LABS: PH,URINE 5.5 (5.0-8.0); URINE APPEARANCE CLEAR; URINE BILIRUBIN NEGATIVE (NEGATIVE); URINE COLOR YELLOW; URINE GLUCOSE (UA) NEGATIVE (NEGATIVE); URINE KETONE NEGATIVE (NEGATIVE); URINE LEUK ESTERASE NEGATIVE (NEGATIVE); URINE NITRITE NEGATIVE (NEGATIVE); URINE PROTEIN NEGATIVE (NEGATIVE)
[2024-06-09] MEDS ORDERED: IBUPROFEN 400 MG TABLET (FP) PO ONE (16:56)
[2024-06-09] MEDS: IBUPROFEN 400 MG TABLET (FP) PO ONE (17:00)
== END 2024-06-09 18:30 | disposition home or self-care (01) ==
LOC: JER 15:23
DX: N50.812 Left testicular pain (principal); R10.32 Left lower quadrant pain; Z20.822 Contact with and (suspected) exposure to COVID-19
CPT/HCPCS: 36415; 76870-TC; 81003; 87086; 87491; 87591; 87633; 99284-25

== ENCOUNTER 2024-08-29 03:44 | Day surgery (SDC) | payer BC, OTHER ==
[2024-08-24 11:39] VITALS: BMI 31.7
[2024-08-29] MEDS ORDERED: LIDOCAINE HCL 1%, 10 MG/ML (20ML VIAL) ONE (08:00)
[2024-08-29] MEDS ORDERED: BUPIVACAINE HCL/PF 0.5% (5MG/ML) 10 ML VIAL ONE (08:01)
[2024-08-29] MEDS ORDERED: MIDAZOLAM HCL 2 MG/2 ML SINGLE DOSE VIAL ONE (08:07)
[2024-08-29] MEDS ORDERED: LIDOCAINE HCL/PF 2% SDV 5ML VIAL ONE (08:12)
[2024-08-29] MEDS ORDERED: ceFAZolin SODIUM 1 GM VIAL ONE (08:13)
[2024-08-29] MEDS ORDERED: PROPOFOL 20 ML ONE ×2 (08:15→08:46)
[2024-08-29] MEDS: ceFAZolin SODIUM 1 GM VIAL IVPB ONE (08:15)
[2024-08-29] MEDS ORDERED: ONDANSETRON 4 MG/2 ML VIAL ONE (08:20)
[2024-08-29] MEDS: LIDOCAINE HCL 1%, 10 MG/ML (20ML VIAL) INF ONE (08:27)
[2024-08-29] MEDS: BUPIVACAINE HCL/PF 0.5% (5MG/ML) 10 ML VIAL IJ ONE (08:27)
[2024-08-29 13:13] VITALS: BP 127/86; PULSE 59; RESP 20; TEMP 97.3
== END 2024-08-29 11:50 | disposition home or self-care (01) ==
LOC: JASU-SURG 03:44
PROVIDERS: ATTEND Urology
PROC: 0VBQ0ZZ Excision of Bilateral Vas Deferens, Open Approach (ICD-10-PCS; principal; 2024-08-29 08:15)
DX: Z30.2 Encounter for sterilization (principal)
CPT/HCPCS: 88302-TC